=== PATIENT | male | born 1935 | race Caucasian/White ===

== ENCOUNTER 2019-01-24 00:14 | Inpatient (IN) | payer OTHER ==
[~2019-01-24] VITALS: Ht 185.4 cm; Wt 78.9 kg
[2019-01-24] MEDS ORDERED: MAGOX 400400 MG PO (00:43)
[2019-01-24] MEDS ORDERED: MELATONIN3 MG PO (00:44)
[2019-01-24] MEDS ORDERED: NORVASC10 MG PO (00:44)
[2019-01-24] MEDS ORDERED: NOVOLOG100 UNIT/1 SUBQ (00:47)
[2019-01-24] MEDS ORDERED: PAXIL10 MG PO (00:48)
[2019-01-24] MEDS ORDERED: PIOGLITAZONE15 MG PO (00:50)
[2019-01-24] MEDS ORDERED: TYLENOL EXTRA500 MG PO (00:52)
[2019-01-24] MEDS ORDERED: TYLENOL325 MG PO (00:53)
[2019-01-24] MEDS ORDERED: ASPIR 8181 MG PO (00:53)
[2019-01-24] MEDS ORDERED: CETIRIZINE HCL5 MG PO (00:54)
[2019-01-24] MEDS ORDERED: GABAPENTIN100 MG PO (00:56)
[2019-01-24] MEDS ORDERED: JANUVIA 50 MG T50 M1 PO (00:57)
[2019-01-24] MEDS ORDERED: ATIVAN0.5 M1 PO (00:58)
[2019-01-24] MEDS ORDERED: LEVEMIR SUBQ (01:01)
[2019-01-24] MEDS ORDERED: LEVEMIR100 UNIT/1 SUBQ (01:03)
[2019-01-24 08:00] VITALS: BP 143/77
[2019-01-24 09:37] VITALS: BP 143/77
[2019-01-24 21:19] VITALS: BP 131/79
[2019-01-25 00:31] VITALS: BP 131/79
[2019-01-25 12:59] VITALS: BP 143/76
[2019-01-25 21:30] VITALS: BP 138/70
[2019-01-26 00:40] VITALS: BP 138/70
[2019-01-26 02:15] VITALS: BP 138/75
[2019-01-26 08:48] VITALS: BP 125/78
[2019-01-26 20:06] VITALS: BP 125/78
[2019-01-26 20:08] VITALS: BP 151/82
[2019-01-27 08:00] VITALS: BP 144/80
[2019-01-27 19:52] VITALS: BP 142/76
[2019-01-28 09:18] VITALS: BP 121/63
[2019-01-28 21:06] VITALS: BP 132/64
[2019-01-29 08:27] VITALS: BP 148/78
[2019-01-29 21:44] VITALS: BP 130/70
[2019-01-30 09:09] VITALS: BP 135/69
[2019-01-30] MEDS ORDERED: NEURONTIN 300300 M1 PO (12:09)
[2019-01-30] MEDS ORDERED: RISPERDAL 1 MG T1 MG PO (12:10)
[2019-01-30] MEDS ORDERED: LANTUS100 UNIT/M SUBQ (12:12)
--- NOTE | 2019-02-01 12:21 | D ---
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 MEDICAL COMORBIDITIES AT THE TIME OF DIAGNOSIS: Includes hypertension, on medication, diabetes mellitus type 2, on Lantus regimen. DISCHARGE PLAN: As follows: He will be discharged to [facility]. Medical and psychiatric care to be followed by receiving facility. He is on a diabetic diet. Laboratories done during this admission were just blood sugars ranging from the 70s up to at least to 250. REASON FOR ADMISSION: As follows: Apparently he had been aggressive towards the roommate. The roommate had been reportedly intrusive, picking on him according to the . HOSPITAL COURSE: The patient was admitted to the Geriatric Psychiatry Unit. Paroxetine was discontinued as he had been on this at the facility. Risperidone was started in the afternoon and evening 0.5 mg twice a day. Neurontin was increased to 300 mg twice per day. Overall, his reactivity and impulsivity improved. At the time of discharge, he is not suicidal or homicidal, felt to be stable for return to placement. PHYSICAL EXAMINATION: VITAL SIGNS: On day of discharge, temperature 36.4, pulse 66, respirations 13, BP 135/69, O2 sat 97%. MUSCULOSKELETAL: Slow gait. Normal station. MENTAL STATUS EXAMINATION: This is a well-developed, well-nourished male, appearing stated age. Attention limited. Concentration limited. Speech is normal rate. Thought process linear and limited. Thought content, aware of immediate surroundings. In fact, he would correct me on pronunciation of his last name. Denied SI or HI. Denied hopelessness, helplessness. Memory known [facility] [address] [address] DISCHARGE SUMMARY Name: VANCE JAVED Room #: 528A-A [facility] IN ..#: [id number] Admission: 01/24/19 Attend Phys: Jag Cruz DO Discharge: 01/30/19 Date of : 35 Report #: [id number] to be impaired. Insight limited. Judgment limited. Fund of knowledge well below average. Prognosis for this patient is guarded due to the presence of neurodegenerative disease. ADDENDUM DISCHARGE MEDICATIONS: Gabapentin 300 mg b.i.d. for mood stabilization and neuropathy pain, risperidone 0.5 mg p.o. at 1500 and 2100, insulin glargine 12 units subcutaneous at bedtime. Other continued medications: Continue using magnesium oxide 400 mg p.o. daily, melatonin 3 mg p.o. at bedtime for sleep, magnesium supplementation, amlodipine 10 mg p.o. daily for hypertension, hold for systolic blood pressure less than 100. He is on 5 units of NovoLog insulin a.c. meals. He is on thiazolidinedione, pioglitazone at 45 mg p.o. daily, Tylenol 500 mg p.o. t.i.d. p.r.n. for pain 1-5 and aspirin 81 mg p.o. daily, also lorazepam is continued at a dose of 0.25 mg p.o. b.i.d.; however, I recommend discontinuation of this medication within 2 weeks if possible given Beers criteria, paroxetine was stopped this admission. <ELECTRONICALLY SIGNED> By: Jag Cruz DO 02/01/19 1221 1201 [id number] Jag Cruz DO /nt
== END 2019-01-30 14:30 | DRG 57 ==
LOC: SBH 00:14
PROVIDERS: ADMIT Psychiatry & Neurology Psychiatry
DX: G30.9 Alzheimer's disease, unspecified (principal); F02.81 Dementia in other diseases classified elsewhere, unspecified severity, with behavioral disturbance; I10 Essential (primary) hypertension; E11.9 Type 2 diabetes mellitus without complications; K21.9 Gastro-esophageal reflux disease without esophagitis; H54.61 Unqualified visual loss, right eye, normal vision left eye; Z79.899 Other long term (current) drug therapy
CPT/HCPCS: 10880